=== PATIENT | male | born 1965 | race Caucasian/White ===

== ENCOUNTER 2020-09-07 13:33 | Emergency (ER) | payer OTHER ==
[2020-09-07 13:45] VITALS: BP 112/75; PULSE 81; RESP 20; TEMP 97.5
--- NOTE | 2020-09-07 14:03 | ED ---
Recheck HPI - General Chief Complaint: Recheck/Abnormal Lab/Rx Stated Complaint: med check Time Seen by Provider: 09/07/20 13:56 Source: patient Mode of arrival: ambulatory Limitations: no limitations - History of Present Illness Initial Comments: 55-year-old male presents to the emergency department with a chief complaint of needing medication refill. Patient denies any symptoms at this time. States he is not able to follow-up with the provider in the next several days. He is requesting medication refill for the next 30 days. - Related Data Previous Rx's Medication Instructions Recorded Tazlina Carbonate 600 mg PO DAILY #30 capsule 09/07/20 Allergies Allergy/AdvReac Type Severity Reaction Status Date / Time No Known Allergies Allergy Verified 09/07/20 13:44 Review of Systems ROS Statement: Those systems with pertinent positive or pertinent negative responses have been documented in the HPI. ROS Other: All systems not noted in ROS Statement are negative. Past Medical History Past Medical History: No Reported History History of Any Multi-Drug Resistant Organisms: None Reported Additional Past Surgical History / Comment(s): head injury Past Psychological History: PTSD Smoking Status: Former smoker Past Alcohol Use History: Abuse Past Drug Use History: Opiates General Exam Limitations: no limitations Course Vital Signs 09/07/20 13:40 Temperature 97.5 F L Pulse Rate 81 Respiratory 20 Rate Blood Pressure 112/75 O2 Sat by Pulse 98 Oximetry Medical Decision Making - Medical Decision Making I refill the medication for his 600 mg lithium. Advised him to follow up with a psychiatrist. Disposition Clinical Impression: Encounter for medication refill Disposition: HOME SELF-CARE Condition: Stable Instructions (If sedation given, give patient instructions): Tazlina (By mouth) Additional Instructions: Please return to the Emergency Department if symptoms worsen or any other concerns. Prescriptions: Tazlina Carbonate 600 mg PO DAILY #30 capsule Is patient prescribed a controlled substance at d/c from ED?: No [facility]errals: [facility] [Primary Care Provider] - 1-2 days Time of Disposition: 14:02
== END 2020-09-07 14:10 | disposition home or self-care (01) ==
LOC: EC 13:33
DX: Z76.0 Encounter for issue of repeat prescription (principal); Z87.891 Personal history of nicotine dependence
CPT/HCPCS: 99282